=== PATIENT | female | born 1955 | race Caucasian/White ===

== ENCOUNTER 2020-05-25 08:57 | Outpatient (CLI) | payer MEDICARE, OTHER, SELFPAY ==
--- NOTE | 2020-05-25 08:59 | ECG_ITS ---
Measurements Intervals [place] Rate: 58 P: -20 PA: 203 QRS: 51 QRSD: 91 T: 28 QT: 412 QTc: 407 Interpretive Statements SINUS BRADYCARDIA BORDERLINE AV CONDUCTION DELAY INCOMPLETE RIGHT BUNDLE BRANCH BLOCK LOW QRS VOLTAGE IN PRECORDIAL LEADS BASELINE ARTIFACT- I, III, AVR, AVL, AVF BORDERLINE ECG Electronically Signed On 05-25-2020 11:11:25 CDT by Dell Lao D.O.
[2020-05-25 09:37] LABS: Anion Gap 6 mmol/L (8-16); Blood Urea Nitrogen 16 mg/dL (7-17); Calcium 9.2 mg/dL (8.4-10.2); Carbon Dioxide 32 mmol/L (22-30); Chloride 104 mmol/L (98-107); Estimated Glomerular Filt Rate 55; Glucose 102 mg/dL (65-105); Potassium 4.2 mmol/L (3.4-5.0); Sodium 142 mmol/L (137-145)
== END 2020-05-25 08:58 | disposition home or self-care (01) ==
PROVIDERS: Anesthesiology; PCP Family Medicine Adolescent Medicine; Visit Provider Orthopaedic Surgery
DX: Z01.818 Encounter for other preprocedural examination (principal); I10 Essential (primary) hypertension
CPT/HCPCS: 36415; 80048; 93005

== ENCOUNTER 2020-05-30 00:19 | Outpatient (CLI) | payer MEDICARE, OTHER, SELFPAY ==
[2020-05-30 19:00] LABS: SARS-CoV-2 RNA PCR Negative
== END 2020-05-30 00:20 | disposition home or self-care (01) ==
LOC: ANHCOVIDDT 00:19
PROVIDERS: PCP Family Medicine Adolescent Medicine; Visit Provider Orthopaedic Surgery
DX: Z01.812 Encounter for preprocedural laboratory examination (principal); Z20.828 Contact with and (suspected) exposure to other viral communicable diseases
CPT/HCPCS: 87635; C9803; U0003

== ENCOUNTER 2020-06-01 01:00 | Day surgery (SDC) | payer MEDICARE, OTHER, SELFPAY ==
[2020-05-24 14:30] VITALS: BMI 37.9
[2020-06-01] MEDS: ACETAMINOPHEN 500 MG TABLET 1000 MG PO (07:01)
--- NOTE | 2020-06-01 07:05 | WPDANESEPPF ---
Anes - Initial Pre Proc Eval Procedure: Operation Date: 06/01/20 08:15 Proposed Procedures p Left Heel [place] Shock Wave Treatment - Waldo Mcgraw MD Date/Time: 06/01/20 07:05 Surgeon: Waldo Mcgraw MD Pre Op Diagnosis: left heel plantar fascitis pain Patient Data Age: 65 Gender: F Height: 1.65 m Weight: 103.45 kg Allergies Allergy/AdvReac Type Severity Reaction Status Date / Time Penicillins Allergy Unknown Hives,SOB,I Verified 05/24/20 14:18 TCHING Home Medications Medication Instructions Recorded Confirmed Type allopurinol 100 mg tablet 100 mg PO PRN PRN tablet 02/29/20 06/01/20 History atorvastatin 40 mg tablet 40 mg PO HS 02/29/20 06/01/20 History furosemide 20 mg tablet 20 mg PO QAM 02/29/20 06/01/20 History metoprolol succinate 50 mg 50 mg PO DAILY 02/29/20 06/01/20 History tablet,extended release 24 hr spironolactone 50 mg tablet 50 mg PO DAILY 02/29/20 06/01/20 History venlafaxine 75 mg capsule,extended 75 mg PO DAILY 02/29/20 06/01/20 History release 24 hr Patient hx anesthesia problems: none Family hx anesthesia problems: none PMFSH Past Medical History Medical History (Updated 05/10/20 @ 12:22 by Waldo Mcgraw MD) Achilles tendinitis of left lower extremity Chronic heel pain Depression Dizziness High cholesterol Hypertension Plantar fasciitis of left foot Posterior calcaneal exostosis Psoriasis Seasonal allergies Sleep apnea Vertigo Vision abnormalities Weight gain Surgical History Surgical History History of shoulder surgery RTC Repair Family History Family History Other Hypertension Social History Social History Smoking packs per day: 1 Smoking cigarettes per day: 20.0 Years smoked: 10 Smoking pack-years: 10.00 Smoking status: Never smoker Tobacco type: cigarettes Smoking end date: 08/18/69 Alcohol intake: current Drinks per week: 1 Alcohol use details: ONE - TWO DRINKS PER MONTH Living arrangements: alone Spiritual care concerns: No Anes - Eval Final PreProcedure Day of Procedure 06/01/20 07:05 Patient weight: obese Heart: regular rate and rhythm Lungs: clear to auscultation and normal air movement Airway: Mallampati scale class II Neurological: alert and oriented Last oral intake: >/= 8 hours ASA classification: III Emergent: no Anesthetic plan: proceed Anesthesia type and monitoring: general LMA and standard monitoring Informed Consent: The patient's anesthetic plan and its attendant risks and benefits were discussed with the patient/family/POA. Questions were solicited and answers provided to the satisfaction of the patient/family/POA.
[2020-06-01] MEDS: LACTATED RINGERS 1,000 ML 30 ML IV CONT ×2 (07:10→08:40)
[2020-06-01 07:11] VITALS: BP 112/55; PULSE 63; TEMP 36.3; O2SAT 97
--- NOTE | 2020-06-01 07:16 | WPDHPUPDATE1 ---
History and Physical Update Update Date/Time: 06/01/20 07:16 History and Physical has been reviewed, including an updated exam of the patient. There are NO changes in the patient's condition. Covid test negative Risks, benefits, and alternatives have been discussed and questions answered. Patient agrees to proceed with procedure.
[2020-06-01 08:40] VITALS: BP 91/75; PULSE 63; RESP 19; TEMP 36.4; O2SAT 98
--- NOTE | 2020-06-01 08:57 | PM.PROC ---
Procedure Note - Detailed Date of procedure: 06/01/20 Pre-op diagnosis: left heel plantar fascitis pain Post-op diagnosis: same Procedure performed: [place] shockwave left heel Description of procedure: indications: Patient is a 65-year-old woman with recalcitrant left heel pain. Failed non operative treatment with physical therapy, stretching regimen, shoe modification, inserts and cortisone injection. Presents now for shockwave treatment. Patient identified in the preoperative holding. Informed consent given. Operative extremity marked. Patient marked the area of maximal tenderness on the left heel with indelible ink. Patient brought to the operating room where underwent MAC by anesthesia team. Positioned supine on operating room table. Time-out performed confirming the patient, site of the surgery and the plan. Shockwave unit then positioned for the left heel. Ultrasound gel applied to the heel. Shockwave then applied to heel at an average of 19 kV for 2000 shock deliveries. Concentrated around area of marked maximal tenderness as well as diffusely plantar fascia, heel area and Achilles tendon insertion. Ultrasound gel then removed. Patient awoken from anesthesia and taken to the recovery room in stable condition. Implants: None Anesthesia: GLMA Surgeon: Waldo Mcgraw MD Estimated blood loss (mL): 0 Drains: No Packing: No Pathology: none sent Complications: None Condition: stable Disposition: PACU
[2020-06-01 09:00] VITALS: BP 106/65; PULSE 65; RESP 14; O2SAT 98
[2020-06-01 09:10] VITALS: BP 108/56; PULSE 64; RESP 14; O2SAT 97
[2020-06-01 09:40] VITALS: BP 105/56; PULSE 56; RESP 14
== END 2020-06-01 10:05 | disposition home or self-care (01) ==
PROVIDERS: PCP Family Medicine Adolescent Medicine; Visit Provider Orthopaedic Surgery
PROC: (CPT 28890; principal; 2020-06-01 08:15)
DX: M72.2 Plantar fascial fibromatosis (principal); M76.62 Achilles tendinitis, left leg; F32.9 Major depressive disorder, single episode, unspecified; E78.00 Pure hypercholesterolemia, unspecified; I10 Essential (primary) hypertension; G47.33 Obstructive sleep apnea (adult) (pediatric); G89.29 Other chronic pain; M77.32 Calcaneal spur, left foot; E66.9 Obesity, unspecified; Z68.38 Body mass index [BMI] 38.0-38.9, adult
CPT/HCPCS: 28890; A9270; J2250; J2405; J2704; J3010; J7120

== ENCOUNTER 2021-03-16 14:43 | Outpatient (CLI) | payer MEDICARE, OTHER, SELFPAY ==
--- NOTE | ~2021-03-16 | US_ITS ---
EXAMINATION: US carotid duplex BI DATE: 03/16/2021 15:28 INDICATION: Visual changes TECHNIQUE: Grayscale, color Doppler, and pulsed Doppler images of the cervical carotid arteries were obtained. The degree of vessel stenosis is placed in one of the following categories: normal, <50%, 5 0-69%, >=70% but less than near-occlusion, near-occlusion, or total occlusion. Note that percent sten osis relative to normal distal artery lumen diameter is indirectly measured from velocity measurement s as described by Shukri, et al. Radiology 2003; [id number]:[id number]. COMPARISON: None. FINDINGS: RIGHT: The right common carotid artery (CCA) peak systolic velocity (PSV) is 100 cm/s. The right internal ca rotid artery (ICA) PSV is 69 cm/s. The right ICA end-diastolic velocity (EDV) is 18 cm/s. The right I CA/CCA PSV ratio is 0.7. Grayscale and color Doppler images yield an estimate of <50% diameter reduct ion from plaque in the ICA. The external carotid artery (ECA) PSV is 126 cm/s. There is antegrade dari w in the right vertebral artery. LEFT: The left CCA PSV is 104 cm/s. The left ICA PSV is 95 cm/s. The left ICA EDV is 25 cm/s. The left ICA/ CCA PSV ratio is 0.9. Grayscale and color Doppler images yield an estimate of <50% diameter reduction from plaque in the ICA. The ECA PSV is 96 cm/s. There is antegrade flow in the left vertebral artery . IMPRESSION: 1. <50% stenosis in the right internal carotid artery. 2. <50% stenosis in the left internal carotid artery. Reviewed, dictated and finalized at location A.
== END 2021-03-16 14:44 | disposition home or self-care (01) ==
LOC: ANHIMG 14:51
PROVIDERS: PCP Family Medicine Adolescent Medicine; Visit Provider Physician Assistant
DX: H53.9 Unspecified visual disturbance (principal); I65.23 Occlusion and stenosis of bilateral carotid arteries
CPT/HCPCS: 93880

== ENCOUNTER → 2022-07-15 13:49 | Outpatient (CLI) | payer MEDICARE, OTHER, SELFPAY ==
--- NOTE | ~2022-07-15 | CT_ITS ---
EXAMINATION: CT sinus wo con DATE: 07/15/2022 14:03 INDICATION: Acute recurrent pansinusitis TECHNIQUE: Computed tomography (CT) of the paranasal sinuses was performed without intravenous contra st. The dose-length product was 274.70 mGy-cm. Automated exposure control and iterative reconstructio n technique were employed. COMPARISON: 05/26/2015 FINDINGS: There is minimal mucosal thickening of the right maxillary sinus. Leftward nasal septal dev iation. Ostiomeatal units are patent. No air-fluid levels or mucoperiosteal reaction. Mastoids are pn eumatized. IMPRESSION: 1. Mild right maxillary sinus disease. Reviewed, dictated and finalized at location A. T [employer]ER
== END ==
PROVIDERS: PCP Family Medicine Adolescent Medicine; Visit Provider Otolaryngology
DX: J32.0 Chronic maxillary sinusitis (principal)
CPT/HCPCS: 70486

== ENCOUNTER → 2025-08-15 10:51 | Outpatient (CLI) | payer MEDICARE, OTHER, SELFPAY ==
--- NOTE | ~2025-08-15 | XR_ITS ---
XR hip BI wo pelvis 08/15/2025 11:19 Indication: Hip pain Procedure: 2 views each hip Comparison: No prior studies for comparison. Findings: Mild bilateral symmetric osteoarthritis of the hips. No fracture, subluxation or dislocation. No significant soft tissue abnormality. Pelvic structures unremarkable. Impression: 1: Mild bilateral symmetric osteoarthritis of the hips. Reviewed, dictated and finalized at location O. AUTHOR Impression: 1: Mild bilateral symmetric osteoarthritis of the hips.
--- NOTE | ~2025-08-15 | XR_ITS ---
XR lumbar spine min 4V 08/15/2025 11:19 Indication: Low back pain Procedure: 5 views lumbar spine Comparison: No prior studies for comparison. Findings: Vertebral body heights are maintained. There is disc narrowing at all lumbar levels. There is facet hypertrophy at L4-5 and L5-S1. No evidence for spondylolisthesis. Pedicles intact. Sacral foramen are symmetric. Impression: 1: Severe lumbar spondylosis. Reviewed, dictated and finalized at location O. ORDER HAND Impression: 1: Severe lumbar spondylosis.
== END ==
LOC: EXPCRAD 10:54
PROVIDERS: PCP Family Medicine; Visit Provider Family Medicine
DX: M47.816 Spondylosis without myelopathy or radiculopathy, lumbar region (principal); M16.0 Bilateral primary osteoarthritis of hip
CPT/HCPCS: 72110; 73130; 73521